=== PATIENT | female | born 1980 | race Caucasian/White ===

== ENCOUNTER → 2021-01-13 10:58 | Outpatient (BNVA) | payer OTHER, SELFPAY | PROVIDERS: PCP Nurse Practitioner Family; Visit Provider Nurse Practitioner Family ==

== ENCOUNTER 2021-02-24 06:26 | Outpatient (REF) | payer OTHER, SELFPAY ==
--- NOTE | ~2021-02-24 | FL_ITS ---
EXAMINATION: Intraoperative fluoroscopy CLINICAL INFORMATION: Spondylosis with radiculopathy COMPARISON: None. TECHNIQUE: Intraoperative fluoroscopy was provided for use by Delmy Ivory NP. A total of 6 images were saved to PACS. A radiologist was not present during imaging. Today's dictation is only for administrative purposes to document intraoperative fluoroscopic usage. TOTAL FLUOROSCOPIC TIME: 0.8 minutes FL/FL guidance in treatment room FINDINGS~\^^ Intraoperative fluoroscopy provided for use by Delmy Ivory NP. Please see operative note for detailed findings.
== END 2021-02-24 06:27 | disposition home or self-care (01) ==
LOC: HO.RADIR 06:26
PROVIDERS: Visit Provider Anesthesiology
DX: M47.27 Other spondylosis with radiculopathy, lumbosacral region (principal); Z79.899 Other long term (current) drug therapy
CPT/HCPCS: Q9967

== ENCOUNTER → 2021-03-03 09:56 | Outpatient (BNVA) | payer OTHER, SELFPAY | PROVIDERS: PCP Nurse Practitioner Family; Visit Provider Nurse Practitioner Family ==

== ENCOUNTER 2021-04-29 06:04 | Outpatient (REF) | payer OTHER, SELFPAY ==
--- NOTE | ~2021-04-29 | FL_ITS ---
EXAMINATION: XR FLUOROSCOPY WITH IMAGES CLINICAL INFORMATION: M51.37 - Other intervertebral disc degeneration, lumbosacral COMPARISON: MRI lumbar spine 11/27/2019 TECHNIQUE: Fluoroscopy performed by Delmy Ivory NP. Fluoroscopy time: 0.2 minutes DAP: 2.28 Gycm2 Images: 2 FINDINGS: There are spinal needles overlying the bilateral outer L3, L4, and L5 neural foramen. There is contrast seen in the respective nerve sheaths. Some early transforaminal epidural extension is suggested. No visible vascular communication. FL/FL guidance in treatment room IMPRESSION: Fluoroscopy for pain management procedures.
== END 2021-04-29 06:05 | disposition home or self-care (01) ==
LOC: HO.RADIR 06:04
PROVIDERS: Visit Provider Internal Medicine
DX: M51.37 Other intervertebral disc degeneration, lumbosacral region (principal); M47.27 Other spondylosis with radiculopathy, lumbosacral region
CPT/HCPCS: 64495; J3300; Q9967

== ENCOUNTER → 2021-06-02 09:39 | Outpatient (BNVA) | payer OTHER, SELFPAY | PROVIDERS: PCP Nurse Practitioner Family; Visit Provider Nurse Practitioner Family ==

== ENCOUNTER → 2021-06-25 13:59 | Outpatient (BNVA) | payer OTHER, SELFPAY | PROVIDERS: PCP Nurse Practitioner Family; Referring Provider Nurse Practitioner Family; Visit Provider Surgery ==

== ENCOUNTER 2021-07-08 06:31 | Outpatient (REF) | payer OTHER, SELFPAY ==
--- NOTE | ~2021-07-08 | FL_ITS ---
EXAMINATION: XR FLUOROSCOPY WITH IMAGES CLINICAL INFORMATION: Sacrococcygeal disorder COMPARISON: Previous exam January and March 2021 TECHNIQUE: Fluoroscopy performed by Delmy Ivory NP. Fluoroscopy time: 0.4 minutes DAP: 3.5 Gycm2 Images: 7 FINDINGS: Images demonstrate needle placement and contrast injection over the bilateral lateral L5 vertebral body and sacrum. FL/FL guidance in treatment room IMPRESSION: Fluoroscopy guidance for pain management procedure.
== END 2021-07-08 06:32 | disposition home or self-care (01) ==
LOC: HO.RADIR 06:31
PROVIDERS: Visit Provider Internal Medicine
DX: M51.36 Other intervertebral disc degeneration, lumbar region (principal); M53.3 Sacrococcygeal disorders, not elsewhere classified; M47.27 Other spondylosis with radiculopathy, lumbosacral region
CPT/HCPCS: Q9967

== ENCOUNTER → 2021-07-13 09:30 | Outpatient (BNVA) | payer OTHER, SELFPAY | PROVIDERS: PCP Nurse Practitioner Family; Visit Provider Internal Medicine ==

== ENCOUNTER 2021-07-27 06:02 | Day surgery (SDC) | payer OTHER, SELFPAY ==
[2021-07-21 16:11] VITALS: BMI 28.9
--- NOTE | 2021-07-24 11:52 | HO.ANESPROP2 ---
Documented by User: Gisell Flowers NP 07/24/21 11:53 HPI - Anesthesia Eval Consult details Narrative: 41yo F for Hernia Repair Umbilical PMFSH Active Problems Active Problems: All Active Problems (Updated 07/13/21 @ 12:24 by Memo Michael MD) Lumbar pars defect (Acute) Cervical disc disease (Acute) Nerve root compression (Acute) DDD (degenerative disc disease), lumbar (Acute) Sacroiliac joint pain (Acute) HTN (hypertension) (Acute) Umbilical hernia (Acute) DDD (degenerative disc disease) (Acute) Spondylosis of lumbosacral spine with radiculopathy (Acute) Tachycardia (Acute) Physical exam (Acute) Family history of uterine cancer (Acute) Family history of ovarian cancer (Acute) Family hx-breast malignancy (Acute) Lower back pain (Acute) Past Medical History Medical History Cervical disc disease DDD (degenerative disc disease), lumbar Family history of ovarian cancer Family history of uterine cancer Gestational diabetes Horseshoe kidney Lumbar pars defect Nerve root compression Family History Family History Father Kidney stones Mother DDD (degenerative disc disease) Maternal Grandmother Ovarian cancer Paternal Grandmother Breast cancer Leukemia Lung cancer Surgical History Surgical History No pertinent past surgical history Social History Social History Alcohol intake: current Alcohol intake frequency: holidays/special occasions only Patient Tobacco Use Status: Never used Tobacco Use of substances other than those prescribed or required for medical reasons: Yes Are you DNR?: No Advance Directives: No Advance Directives Information Provided: Yes Meds Allergies Allergy/AdvReac Type Severity Reaction Status Date / Time No Known Allergies Allergy Verified 07/27/21 06:32 Home Medications Medication Instructions Recorded Confirmed Last Taken Type blood sugar diagnostic #10 ea 08/21/20 07/23/21 Unknown History blood-glucose meter #1 ea 08/21/20 07/23/21 Unknown History diphenhydramine HCl 25 mg capsule 25 mg PO QID PRN 12/25/20 07/23/21 Unknown History (Benadryl) melatonin 5 mg capsule mg PO .1-2 cap cap 12/25/20 07/23/21 Unknown History ibuprofen 800 mg tablet 800 mg PO TID 01/13/21 07/23/21 07/25/21 10:00 History naproxen sodium 220 mg capsule 220 mg PO Q8H 06/02/21 07/23/21 Unknown History (Aleve) Exam Exam Date and Time: July 24, 2021 1152 Height,Weight and Vital Signs: Height 5 ft 5 in Weight 78.925 kg Assessment and Plan Assessment Anesthesia Assessment: Chart Reviewed Documented by User: Boy Herrmann MD 07/27/21 07:25 [facility] Past Medical History Medical History Cervical disc disease DDD (degenerative disc disease), lumbar Family history of ovarian cancer Family history of uterine cancer Gestational diabetes Horseshoe kidney Lumbar pars defect Nerve root compression Family History Family History Father Kidney stones Mother DDD (degenerative disc disease) Maternal Grandmother Ovarian cancer Paternal Grandmother Breast cancer Leukemia Lung cancer Family history of problems with anesthesia: No Surgical History Surgical History No pertinent past surgical history History of Problems with Anesthesia: No Social History Social History Alcohol intake: current Alcohol intake frequency: holidays/special occasions only Patient Tobacco Use Status: Never used Tobacco Use of substances other than those prescribed or required for medical reasons: Yes Are you DNR?: No Advance Directives: No Advance Directives Information Provided: Yes Meds Allergies Allergy/AdvReac Type Severity Reaction Status Date / Time No Known Allergies Allergy Verified 07/27/21 06:32 Home Medications Medication Instructions Recorded Confirmed Last Taken Type blood sugar diagnostic #10 ea 08/21/20 07/23/21 Unknown History blood-glucose meter #1 ea 08/21/20 07/23/21 Unknown History diphenhydramine HCl 25 mg capsule 25 mg PO QID PRN 12/25/20 07/23/21 Unknown History (Benadryl) melatonin 5 mg capsule mg PO .1-2 cap cap 12/25/20 07/23/21 Unknown History ibuprofen 800 mg tablet 800 mg PO TID 01/13/21 07/23/21 07/25/21 10:00 History naproxen sodium 220 mg capsule 220 mg PO Q8H 06/02/21 07/23/21 Unknown History (Aleve) Exam Airway Mallampati Class: I TM Dist: >3cm Neck ROM: Full Loose/Missing/Broken Teeth: No Heart: ok Lungs: ok Assessment and Plan Final Anesthetic Review Family History of Problems with Anesthesia: No History of Problems with Anesthesia: No ASA Class: II Final Preanesthetic Review: No Changes in Pt Med Stat, Meds/Allgs Chart Reviewed, Consent Obtained/Reviewed and Anes Risks/Benef Reviewed Patient Risk: Low Procedure Risk: Low Anesthetic Plan Anesthetic Plan: GA and Agree w/ Assess. and Plan Disposition: Standard PACU
[2021-07-27] VITALS (7 sets, daily range): BP systolic 116–139; BP diastolic 68–89; PULSE 48–73; RESP 16–18; TEMP 36.1–36.5; O2SAT 95–98
[2021-07-27 06:32] LABS: UPreg QC Valid YES; Urine Pregnancy NEGATIVE (NEGATIVE)
[2021-07-27] MEDS: Lactated Ringers 1,000 ML 100 ML IVCONT (06:44)
--- NOTE | 2021-07-27 07:22 | MHC.SHP ---
Pre-Procedural Eval Section A Date of Service: 07/27/21 The patient is an INPATIENT: No Changes since office visit: Yes Patient answered all questions; No Cold of Flu in the past 2 weeks, No New Medical Problems and No Changes in Medication The History & Physical has been completed within 30 days and I have reviewed it.: Yes Section B Chief Complaint: Umbilical Hernia Allergies: Allergies Allergy/AdvReac Type Severity Reaction Status Date / Time No Known Allergies Allergy Verified 07/27/21 06:32 Plan Diagnosis/Plan: Unchanged I have reviewed the history and physical and performed a pertinent physical examination on my patient. No changes have occurred unless specified.
--- NOTE | 2021-07-27 08:30 | P.OP_ITS ---
Operative Note Operative Note Date of Service: 07/27/21 Narrative: Preoperative diagnosis: Umbilical hernia Postoperative diagnosis: Same Procedure: Repair of umbilical hernia with mesh Surgeon: David Kuhn MD [employer] Professor: No physician Anesthesia: General LMA Indications for procedure: 41-year-old female patient presenting with an umbilical hernia which is increasing in size and causing discomfort. She is requesting repair of this umbilical hernia with mesh. Operative findings: Umbilical hernia with a hernia defect measuring approximately 2 cm in diameter. This was repaired using a 4.6 cm round Ventralex. Specimen: None Estimated blood loss: 2 mL Complications: None Procedure details: Patient was brought to the OR and placed in a supine position. After administering general anesthesia the patient's abdomen was prepped with ChloraPrep and draped in a sterile fashion. A surgical time-out was called the consent confirmed. Patient received preoperative antibiotics and Venodyne boots were in place. Local anesthesia consisting of 0.5% Sensorcaine plain was infiltrated in a periumbilical location. A curvilinear incision was made above the umbilicus and carried down through subcutaneous tissue up to the hernia sac. The hernia sac was then dissected circumferentially down to the fascial defect. Fascial defect was further defined circumferentially and a preperitoneal space created. The hernia sac was then reduced into the abdominal cavity. No bowel or incarcerated contents were identified within the sac. A large preperitoneal space was created through both blunt dissection and electrocautery dissection. A 4.6 cm round Ventralex mesh was then obtained. The mesh was then deployed into the preperitoneal space and secured to the fascia using [id number] 1 Tycron sutures. The fascia was closed over the mesh again using the Tycron sutures. Additional local was infiltrated into the muscular tissue and subcutaneous tissue. Wounds were irrigated and suctioned dry. Dermis was then reapproximated using interrupted 3-0 Polysorb sutures. Skin was then closed using a running subcuticular 4-0 Polysorb suture. Steri-Strips 2 x 2 gauze and Tegaderm were then applied. The patient tolerated the procedure well. Sponge, instrument, needle counts reported as correct. The patient was transferred to PACU in stable condition.
[2021-07-27] MEDS: Ketorolac Tromethamine 15 MG/ML VIAL IVPUSH (08:40)
[2021-07-27] MEDS: fentaNYL citrate/PF 100 MCG/2 ML VIAL 50 MCG IVPUSH (08:45)
[2021-07-27] MEDS: Acetaminophen 325 MG TABLET 650 MG PO (09:01)
[2021-07-27] MEDS: oxyCODONE HCl Immed Release 5 MG TABLET PO (09:02)
== END 2021-07-27 10:20 | disposition home or self-care (01) ==
PROVIDERS: Nurse Practitioner; PCP Nurse Practitioner Family; Visit Provider Surgery
PROC: (CPT 49585; principal; 2021-07-27 07:30)
DX: K42.9 Umbilical hernia without obstruction or gangrene (principal); I10 Essential (primary) hypertension
CPT/HCPCS: 49585; 81025; C1781; J0690; J1885; J2250; J3010

== ENCOUNTER → 2021-08-04 10:16 | Outpatient (BNVA) | payer OTHER, SELFPAY | PROVIDERS: PCP Nurse Practitioner Family; Referring Provider Nurse Practitioner Family; Visit Provider Surgery ==

== ENCOUNTER → 2021-09-08 15:46 | Outpatient (BNVA) | payer OTHER, SELFPAY | PROVIDERS: PCP Nurse Practitioner Family; Referring Provider Nurse Practitioner Family; Visit Provider Surgery ==

== ENCOUNTER 2021-09-22 14:28 | Outpatient (REF) | payer OTHER, SELFPAY ==
--- NOTE | ~2021-09-22 | CT_ITS ---
EXAMINATION: CT ABDOMEN AND PELVIS WITH CONTRAST CLINICAL INFORMATION: Periumbilical pain COMPARISON: None TECHNIQUE: Multidetector volumetric images were obtained from the superior aspect of the liver through the pubic symphysis following administration 85 mL of Omnipaque 350 intravenous contrast. Sagittal and coronal reformatted images were obtained on the technologist's workstation. Oral contrast: Yes This CT examination was performed using dose optimization techniques as appropriate, variously including the following: *Automated exposure control *Adjustment of mA and/or kV according to patient size (this includes techniques or standardized protocols for targeted exams where dose is matched to indication/reason for exam; i.e. extremities or head) *Use of iterative reconstruction technique DLP: 487 mGy-cm FINDINGS: LUNG BASES: The visualized lung bases are unremarkable. LIVER, GALLBLADDER, AND BILIARY TREE: The liver is normal in size, shape, and attenuation. There is a small calcification in the central liver axial image 13 series 3. No focal hepatic lesion or biliary ductal dilatation is present. The gallbladder is unremarkable with no evidence of radiopaque gallstones, gallbladder wall thickening, or obvious pericholecystic inflammatory changes. PANCREAS: Unremarkable. SPLEEN: Unremarkable. ADRENAL GLANDS: Unremarkable. KIDNEYS AND URETERS: There is a horseshoe kidney. The kidneys are otherwise unremarkable. BLADDER: Unremarkable. GASTROINTESTINAL TRACT: The small and large bowel are unremarkable. The appendix is unremarkable. ABDOMINAL WALL: There is question of previous umbilical hernia repair. There is asymmetric soft tissue thickening in the right side of the umbilicus. No hernia or fluid collection is seen. LYMPH NODES: Normal. VASCULAR: Unremarkable. PELVIC VISCERA: Unremarkable. OSSEOUS STRUCTURES: There is degenerative disc disease at L4-L5 and L5-S1. CT/CT abdomen pelvis w con IMPRESSION: Question previous umbilical hernia repair. Asymmetric soft tissue thickening of the right side of the umbilicus. No hernia or fluid collection seen. Horseshoe kidney. Fleischner guidelines were followed.
[2021-09-22] MEDS: iohexoL 350 MG/ML 100 ML INFUS..BTL IV (15:04)
== END 2021-09-22 14:29 | disposition home or self-care (01) ==
LOC: HO.CT 14:28
PROVIDERS: Visit Provider Surgery
DX: R10.33 Periumbilical pain (principal); K43.9 Ventral hernia without obstruction or gangrene
CPT/HCPCS: 74177; Q9967

== ENCOUNTER 2021-11-11 06:13 | Outpatient (REF) | payer OTHER, SELFPAY | END 2021-11-11 06:14 | disposition home or self-care (01) | LOC: HO.RADIR 06:13 | PROVIDERS: Visit Provider Internal Medicine | DX: Z13.89 Encounter for screening for other disorder (principal) ==

== ENCOUNTER 2021-11-11 08:13 | Outpatient (REF) | payer OTHER, SELFPAY ==
[2021-11-11 08:43] LABS: Binax Internal Control QC Valid; Binax Now Covid-19 Ag Positive (Negative)
== END 2021-11-11 08:14 | disposition home or self-care (01) ==
LOC: HO.LAB 08:13
PROVIDERS: Visit Provider Internal Medicine
DX: Z20.822 Contact with and (suspected) exposure to COVID-19 (principal)
CPT/HCPCS: C9803

== ENCOUNTER 2022-01-06 06:07 | Outpatient (REF) | payer OTHER, SELFPAY ==
--- NOTE | ~2022-01-06 | FL_ITS ---
EXAMINATION: XR FLUOROSCOPY WITH IMAGES CLINICAL INFORMATION: M51.36 - Other intervertebral disc degeneration, lumbar COMPARISON: MR lumbar spine 11/27/2019 TECHNIQUE: Fluoroscopy performed by Dr. Memo Michael. Fluoroscopy time: 0.1 minutes DAP: 1.13 Gycm2 Images: 2 FINDINGS: There is interlaminar spinal needle at the lumbosacral junction. Contrast is seen in the epidural space. There is no vascular communication. There are degenerative disc changes L5-S1. FL/FL guidance in treatment room IMPRESSION: Fluoroscopy for pain management procedure.
== END 2022-01-06 06:08 | disposition home or self-care (01) ==
LOC: HO.RADIR 06:07
PROVIDERS: Visit Provider Internal Medicine
DX: M51.36 Other intervertebral disc degeneration, lumbar region (principal); M54.16 Radiculopathy, lumbar region; M43.06 Spondylolysis, lumbar region
CPT/HCPCS: 62323; J1040; Q9967

== ENCOUNTER → 2022-02-03 15:10 | Outpatient (BNVA) | payer OTHER, SELFPAY | PROVIDERS: PCP Nurse Practitioner Family; Visit Provider Nurse Practitioner Family | DX: Z13.89 Encounter for screening for other disorder (principal) ==

== ENCOUNTER 2022-02-17 14:30 | Outpatient (REF) | payer OTHER, SELFPAY ==
--- NOTE | ~2022-02-17 | MR_ITS ---
EXAMINATION: MR LUMBAR SPINE WITHOUT CONTRAST CLINICAL INFORMATION: Lumbar region radiculopathy. Left leg pain. Low back pain. COMPARISON: MRI dated 11/27/2019. TECHNIQUE: MRI of the lumbar spine was obtained using routine sequences without contrast. Limited study with motion artifacts. FINDINGS: VERTEBRAL BODIES AND PARASPINAL STRUCTURES: Chronic fatty marrow endplate changes and mild retrosubluxation with [id number] disc space narrowing again evident at the L4-L5 level. There is a grade 1 anterolisthesis with moderate disc space narrowing at the L5-S1 level where there are chronic bilateral L5 pars defects, also evident on the prior exam. Mild leftward lumbar spinal curvature evident. The paraspinal soft tissues are unremarkable. Incidental horseshoe kidney partially visualized. The imaged bony pelvis is unremarkable. CONUS MEDULLARIS AND CAUDA EQUINA: Normal, terminating at the level of L1. No lower cord signal abnormality is seen. The cauda equina nerve roots are normal. SPINAL LEVELS: L1-L2, L2-L3, and L3-L4: No significant disc pathology, central canal stenosis, or foraminal narrowing. L4-L5: Loss of disc height with chronic endplate changes and a shallow left paracentral disc protrusion with an underlying annular tear. Small extruded component of disc also again visible with mild impression upon the left L5 nerve root in the lateral recess. No central canal stenosis or significant foraminal encroachment. L5-S1: Anterior subluxation and disc degeneration as on prior imaging. Unroofed disc bulge again noted. Worsened central to left extraforaminal broad-based disc protrusion with mild superior migration resulting in ventral thecal sac deformity and posterior deflection of the left S1 nerve root. Additional compression of the exiting left L5 nerve root with significant left foraminal encroachment, worsened. Bulging disc mildly distorts the exiting right L5 nerve root with milder right foraminal encroachment. MR/MR lumbar spine wo con IMPRESSION: Worsened broad-based central to left extraforaminal disc protrusion at the L5-S1 level with distortion of the ventral thecal sac and compression of the left L5 and S1 nerve roots. Stable mild anterolisthesis with chronic L5 pars defects. Moderate chronic degenerative disc disease at the L4-L5 level with a shallow left paracentral disc protrusion and small extruded component of disc again visible mildly impressing upon the left L5 nerve root in the lateral recess.
== END 2022-02-17 14:31 | disposition home or self-care (01) ==
LOC: HO.MRI 14:30
PROVIDERS: Visit Provider Nurse Practitioner Family
DX: M54.16 Radiculopathy, lumbar region (principal); M51.36 Other intervertebral disc degeneration, lumbar region; M43.06 Spondylolysis, lumbar region
CPT/HCPCS: 72148

== ENCOUNTER 2022-03-19 05:57 | Outpatient (REF) | payer OTHER, SELFPAY | END 2022-03-19 05:58 | disposition home or self-care (01) | LOC: HO.RADIR 05:57 | PROVIDERS: Visit Provider Internal Medicine | DX: Z13.89 Encounter for screening for other disorder (principal) ==

== ENCOUNTER 2023-03-02 10:35 | Outpatient (REF) | payer OTHER, SELFPAY ==
[2023-03-02 11:09] LABS: MANUAL DIFF FLAG NO
[2023-03-02 11:28] LABS: Basophils Percent Auto 0.5 % (0-2); Eosinophils Absolute Auto 0.2 X10*3/uL (0.0-0.4); Eosinophils Percent Auto 2.9 % (0-4); Hemoglobin 11.8 g/dl (12.0-16.0); Imm Gran Abs Auto 0.01 X10*3/uL (0.00-0.03); Imm Gran Pct Auto 0.2 % (0.0-0.4); Lymphocytes Percent Auto 32.4 % (20-40); Mean Corpuscular HGB Conc 31.9 g/dl (31.0-35.0); Mean Corpuscular Hemoglobin 24.9 pg (27.0-33.0); Mean Corpuscular Volume 78.2 fL (80.0-98.0); Mean Platelet Volume 11.2 fL (9.4-12.3); Monocytes Absolute Auto 0.5 X10*3/uL (0.1-1.2); Monocytes Percent Auto 7.5 % (2-11); Neutrophils Absolute Auto 3.5 x10*3/uL (2.0-8.3); Neutrophils Percent Auto 56.5 % (45-73); Platelet Count 285 X10*3/uL (160-400); Red Blood Count 4.73 X10*6/uL (4.20-5.50); Red Cell Distribution Width 15.9 % (11.0-16.0); White Blood Count 6.2 X10*3/uL (4.8-10.8)
[2023-03-02 12:21] LABS: Alanine Aminotransferase 10 U/L (0-31); Albumin Level 4.6 g/dL (3.5-5.0); Alkaline Phosphatase 75 U/L (39-117); Anion Gap 11 (12-20); Aspartate Amino Transferase 15 U/L (5-31); Bilirubin Total 0.6 mg/dL (0.0-1.0); Blood Urea Nitrogen 11 mg/dL (9-16); Calcium 9.7 mg/dL (8.4-10.2); Carbon Dioxide 23 mmol/L (22-29); Chloride 108 mmol/L (96-108); Cholesterol 305 mg/dL; Estimated Glomerular Filt Rate > 60; Glucose Fasting 109 mg/dL (60-99); HDL Cholesterol 64 mg/dL; LDL Cholesterol Calculated 218 mg/dl; Sodium 138 mmol/L (135-145); TSH reflex Free T4 0.63 uIU/mL (0.32-4.0); Total Protein 7.4 g/dL (6.5-8.0); Triglycerides 117 mg/dL
[2023-03-02 14:25] LABS: Appearance Urine Clear; Color Urine Yellow; Glucose Urine UA Negative (Negative); Leukocyte Esterase Urine Negative (Negative); Nitrite Urine Negative (Negative); PH 5.5 (5.0-9.0); Specific Gravity - Urine 1.025 (1.005-1.025); Urine Blood Negative (Negative); Urine Ketones 15 mg/dL (Negative); Urine Protein Negative (Neg-Trace)
== END 2023-03-02 10:36 | disposition home or self-care (01) ==
LOC: HO.HMGCLDS 10:35
PROVIDERS: PCP Nurse Practitioner Family; Visit Provider Nurse Practitioner Family
DX: M47.27 Other spondylosis with radiculopathy, lumbosacral region (principal); D64.9 Anemia, unspecified; E78.5 Hyperlipidemia, unspecified
CPT/HCPCS: 36415; 80053; 80061; 81003; 84443; 85025

== ENCOUNTER 2023-08-31 09:47 | Outpatient (AMB) | payer OTHER, SELFPAY ==
--- NOTE | 2023-08-31 09:50 | A.OFFPC_ITS ---
Vital Signs 08/31/23 09:52 Height 5 ft 5 in Weight 158 lb 2 oz BMI 26.3 BP 128/90 H Blood Pressure Location Rt brachial Position Sitting Pulse 68 Pulse Source Pulse Oximeter Pulse Oximetry (%) 100 Oxygen Delivery Method Room Air Intake Visit Reasons: 6m Follow up HTN Allergies rosuvastatin Adverse Reaction (Intermediate, Uncoded 08/31/23 09:54) Gastrointestinal Upset Medication List - Last Reconciled 08/31/23 by NAHUN Polk acetaminophen ER (Tylenol Arthritis Pain) 1,300 mg PO Q12H amlodipine 2.5 mg PO DAILY 90 days cyclobenzaprine 10 mg PO BID PRN diphenhydramine HCl (Benadryl) 25 mg PO QID PRN ibuprofen 800 mg PO TID melatonin mg PO .1-2 cap naproxen sodium (Aleve) 220 mg PO Q8H propranolol ER 120 mg PO DAILY 30 days Tobacco use date assessed: 03/02/23 Dental Screening Dental Screen Date: 08/31/23 Did you have a dental visit in the last 12 months?: Yes Did you have a dental problem in the last 6 months where you did not have access to dental care?: No Was dental information given to patient?: Patient has dentist HPI 6m Follow up HTN HPI Details I last saw this patient in February for hypertension. I increased her propanolol from 80 mg to 120 mg daily. HR is down. Pt reports taking her BP at home, pulse remains in the 60s, though BP is 140/90s. Will add amlodipine. #2 dyslipidemia: started stain, pt had side effects (severe nausea), does not want to try another statin. will send [facility]. denies any CP, SOB, dizziness, or REIS. [facility] Medical History Lumbar pars defect Family history of uterine cancer Family history of ovarian cancer Horseshoe kidney Gestational diabetes Nerve root compression Cervical disc disease DDD (degenerative disc disease), lumbar Surgical History No pertinent past surgical history Family History Father Kidney stones Mother DDD (degenerative disc disease) Substance use disorder Maternal Grandmother Ovarian cancer Paternal Grandmother Breast cancer Leukemia Lung cancer Social History Housing: House Alcohol intake: current Alcohol intake frequency: holidays/special occasions only Patient Tobacco Use Status: Never used Tobacco e-Cigarette/Vaping Use: Never Used Second Hand Smoke Exposure: No Current occupational status: disabled Cognitive needs: No Hearing needs: No Vision needs: No Questionnaire Thrive Questionnaire Date Thrive assessed: 01/28/22 KRISTINA-7 AMB Questionnaire KRISTINA-7 Date KRISTINA - 7 assessed: 01/28/22 Source: Developed by Drs. Duc De La Cruz, Leigh Triana, Moy Roberts and colleagues, with an educational javier from [employer]. Physical exam (Primary Care) Vital Signs: Last Vital Signs Pulse 68 08/31/23 09:52 BP 128/90 H 08/31/23 09:52 Pulse Ox 100 08/31/23 09:52 Oxygen Delivery Method Room Air 08/31/23 09:52 BMI result Body Mass Index 26.3 Tobacco/Smoking Status: Tobacco use Status Tobacco use date assessed 03/02/23 08/31/23 09:52 Patient Tobacco Use Status Never used Tobacco 08/31/23 09:52 e-Cigarette/Vaping Use Never Used 08/31/23 09:52 Thrive Assessment: Date of Thrive Assessment Date Thrive assessed 01/28/22 08/31/23 09:52 Const General: cooperative and healthy appearing Resp Effort & Inspection: normal respiratory effort Auscultation: clear to auscultation bilaterally Cardio Rate: regular rate Rhythm: regular rhythm Heart sounds: S1 normal heart sound present and S2 normal heart sound present Psych Appearance: grossly normal Mental Status: mental status grossly normal Speech and movement: Normal speech and movement present Affect: normal affect Attitude: cooperative Thought process: Normal thought process present Thought content: Normal thought content present Insight: Good insight present (Psych) Judgement: Good judgement present (Psych) Assessment and Plan Assessment & Plan (1) Dyslipidemia: Code(s): E78.5 - Hyperlipidemia, unspecified Plan: added generic zetia, will repeat labs (2) HTN (hypertension): Code(s): I10 - Essential (primary) hypertension Plan: cont propranolol, added amlodipine (low dose) Orders: Orders Lipid Panel Today E78.5 - Hyperlipidemia, unspecified, I10 - Essential (primary) hypertension UA CC w/rflx Micro + Cult Today E78.5 - Hyperlipidemia, unspecified, I10 - Essential (primary) hypertension Complete Blood Count Auto Diff Today E78.5 - Hyperlipidemia, unspecified, I10 - Essential (primary) hypertension Comprehensive [place]. Panel Fast Today E78.5 - Hyperlipidemia, unspecified, I10 - Essential (primary) hypertension TSH reflex Free T4 Today E78.5 - Hyperlipidemia, unspecified, I10 - Essential (primary) hypertension Medications: New ezetimibe for cholesterol. 10 mg PO DAILY 90 days 90 tabs 0RF amlodipine 2.5 mg PO DAILY 90 days 90 tabs 0RF Coding Level of Care Code Est Pt Level 3 (85781) Diagnoses Dyslipidemia E78.5 HTN (hypertension) I10
[2023-08-31 09:52] VITALS: BP 128/90; PULSE 68; O2SAT 100; BMI 26.3
== END 2023-08-31 10:49 | disposition home or self-care (01) ==
PROVIDERS: Visit Provider Nurse Practitioner Family
DX: E78.5 Hyperlipidemia, unspecified (principal); I10 Essential (primary) hypertension
CPT/HCPCS: 99213

== ENCOUNTER 2024-03-12 10:00 | Outpatient (REF) | payer OTHER, SELFPAY ==
[2024-03-12 13:27] LABS: MANUAL DIFF FLAG NO
[2024-03-12 13:55] LABS: Basophils Percent Auto 0.7 % (0-2); Eosinophils Absolute Auto 0.2 X10*3/uL (0.0-0.4); Eosinophils Percent Auto 2.8 % (0-4); Hematocrit 34.1 % (37.0-47.0); Hemoglobin 10.8 g/dl (12.0-16.0); Imm Gran Abs Auto 0.01 X10*3/uL (0.00-0.03); Imm Gran Pct Auto 0.2 % (0.0-0.4); Lymphocytes Percent Auto 33.2 % (20-40); Mean Corpuscular HGB Conc 31.7 g/dl (31.0-35.0); Mean Corpuscular Hemoglobin 25.6 pg (27.0-33.0); Mean Corpuscular Volume 80.8 fL (80.0-98.0); Mean Platelet Volume 11.1 fL (9.4-12.3); Monocytes Absolute Auto 0.4 X10*3/uL (0.1-1.2); Neutrophils Absolute Auto 3.4 x10*3/uL (2.0-8.3); Neutrophils Percent Auto 56.1 % (45-73); Platelet Count 303 X10*3/uL (160-400); Red Blood Count 4.22 X10*6/uL (4.20-5.50); White Blood Count 6.1 X10*3/uL (4.8-10.8)
[2024-03-12 14:09] LABS: Appearance Urine Clear; Color Urine Yellow; Glucose Urine UA Negative (Negative); Leukocyte Esterase Urine Negative (Negative); Nitrite Urine Negative (Negative); Urine Blood Negative (Negative); Urine Ketones Negative (Negative); Urine Protein Negative (Neg-Trace)
[2024-03-12 14:27] LABS: Alanine Aminotransferase 9 U/L (0-31); Albumin Level 4.3 g/dL (3.5-5.0); Alkaline Phosphatase 73 U/L (39-117); Anion Gap 13 (12-20); Aspartate Amino Transferase 14 U/L (5-31); Bilirubin Total 0.3 mg/dL (0.0-1.0); Blood Urea Nitrogen 12 mg/dL (9-16); Calcium 9.2 mg/dL (8.4-10.2); Carbon Dioxide 20 mmol/L (22-29); Chloride 108 mmol/L (96-108); Cholesterol 280 mg/dL (<200); Estimated Glomerular Filt Rate > 60; Glucose Fasting 81 mg/dL (60-99); HDL Cholesterol 73 mg/dL (>40); LDL Cholesterol Calculated 189 mg/dL (<100); Potassium 4.1 mmol/L (3.3-5.1); Sodium 137 mmol/L (135-145); Total Protein 7.7 g/dL (6.5-8.0); Triglycerides 94 mg/dL (<150)
== END 2024-03-12 10:01 | disposition home or self-care (01) ==
LOC: HO.HMGCLDS 10:00
PROVIDERS: PCP Nurse Practitioner Family; Visit Provider Nurse Practitioner Family
DX: E78.5 Hyperlipidemia, unspecified (principal); I10 Essential (primary) hypertension
CPT/HCPCS: 36415; 80053; 80061; 81003; 84443; 85025

== ENCOUNTER 2024-03-12 10:28 | Outpatient (AMB) | payer OTHER, SELFPAY ==
--- NOTE | 2024-03-12 10:41 | A.OFFPC_ITS ---
Vital Signs 03/12/24 10:44 Height 5 ft 5 in Weight 158 lb 6 oz BMI 26.4 BP 120/76 Blood Pressure Location Lt brachial Position Sitting Pulse 78 Pulse Source Pulse Oximeter Pulse Oximetry (%) 100 Oxygen Delivery Method Room Air Intake Visit Reasons: Physical Exam Intake Note: Patient here for physical exam. Pap: 2020 Allergies rosuvastatin Adverse Reaction (Intermediate, Uncoded 03/12/24 11:06) Gastrointestinal Upset Medication List - Last Reconciled 03/12/24 by NAHUN Polk acetaminophen ER (Tylenol Arthritis Pain) 1,300 mg PO Q12H cyclobenzaprine 10 mg PO BID PRN ibuprofen 800 mg PO TID melatonin mg PO .1-2 cap naproxen sodium (Aleve) 220 mg PO Q8H propranolol ER 120 mg PO DAILY Tobacco use date assessed: 03/12/24 Dental Screening Dental Screen Date: 03/12/24 Did you have a dental visit in the last 12 months?: Yes Did you have a dental problem in the last 6 months where you did not have access to dental care?: No Was dental information given to patient?: Patient has dentist HPI Physical Exam HPI Details Pt is here for a PE. Labs have already been ordered. Due for mammo, will order. Pt does not have a insurance executive, will refer. Pt has a significant back history. FORMERLY [facility] Medical History Lumbar pars defect Family history of uterine cancer Family history of ovarian cancer Horseshoe kidney Gestational diabetes Nerve root compression Cervical disc disease DDD (degenerative disc disease), lumbar Surgical History No pertinent past surgical history Family History Father Kidney stones Mother DDD (degenerative disc disease) Substance use disorder Maternal Grandmother Ovarian cancer Paternal Grandmother Breast cancer Leukemia Lung cancer Social History Housing: House Alcohol intake: current Alcohol intake frequency: holidays/special occasions only Patient Tobacco Use Status: Never used Tobacco e-Cigarette/Vaping Use: Never Used Second Hand Smoke Exposure: No Current occupational status: disabled Cognitive needs: No Hearing needs: No Vision needs: No Questionnaire PHQ-9 Over the last 2 weeks, how often have you been bothered by any of the following problems? 1. Little interest or pleasure in doing things: not at all 2. Feeling down, depressed, or hopeless: not at all 3. Trouble falling or staying asleep, or sleeping too much: more than half the days 4. Feeling tired or having little energy: several days 5. Poor appetite or overeating: not at all 6. Feeling bad about yourself - or that you are a failure or have let yourself or your family down: not at all 7. Trouble concentrating on things, such as reading the newspaper or watching television: not at all 8. Moving or speaking so slowly that other people could have noticed. Or the opposite - being so fidgety or restless that you have been moving around a lot more than usual: not at all 9. Thoughts that you would be better off or of hurting yourself in some way: not at all Total score: 3 Depression Screening Interpretation: Negative Depression Screening Done: Yes 05336 - PHQ-9 Billing: Yes Source: Developed by Drs. Duc De La Cruz, Leigh Triana, Moy oRberts and colleagues, with an educational javier from [employer]. Thrive Questionnaire Date Thrive assessed: 01/28/22 I am a: Patient What is your living situation today?: I have a steady place to live Within the past 12 months, did the food you bought not last and you didn't have the money to get more?: Never true Within the past 12 months, did you worry whether your food would run out before you got money to buy more?: Never true Please select the resources that you would like help with: None Currently or been in a relationship where the following occur: no concerns reported THRIVE Score: 0 AUDIT C Alcohol Use Questionnaire (AUDIT-C) 1. How often do you have a drink containing alcohol?: Never 3. How often do you have six or more drinks on one occasion?: Never Total Score: 0 Score Reviewed/Action Taken: No KRISTINA-7 AMB Questionnaire KRISTINA-7 Date KRISTINA - 7 assessed: 03/12/24 Feeling nervous, anxious, or on edge: 0 = Not at all Not being able to stop or control worryin = Not at all Worrying too much about different things: 1 = Several days Trouble relaxin = Several days Being so restless that it is hard to sit still: 1 = Several days Becoming easily annoyed or irritable: 0 = Not at all Feeling afraid as if something awful might happen: 0 = Not at all Total KRISTINA-7 score (0-4 normal; 5-9 mild; 10-14 moderate; 15-21 severe): 3 Source: Developed by Drs. Duc De La Cruz, Leigh Triana, Moy Roberts and colleagues, with an educational javier from [employer]. KRISTINA-7 Assessment Billing KRISTINA-7 Assessment Tool: KRISTINA-7 Assessment 07824 Review of Systems Const Denies chills and Denies fever(s) Eyes Denies blurry vision ENT Denies vertigo, Denies dizziness and Denies sore throat Card Denies chest pain at rest, Denies chest pain with activity, Denies diaphoresis, Denies dyspnea and Denies dyspnea on exertion Resp Denies cough, Denies dyspnea, Denies dyspnea on exertion and Denies wheezing GI Denies abdominal pain, Denies melena, Denies hematochezia, Denies constipation, Denies diarrhea and Denies loose stools Denies hematuria Musc Denies numbness and Denies tingling Skin/Breast Denies lesions Neuro Denies vertigo, Denies dizziness, Denies numbness and Denies tingling Psych Denies anxiety, Denies depression, Denies homicidal ideation, Denies suicidal ideation and Denies other (substance abuse) Aller/Immun Denies wheezing Physical exam (Primary Care) Vital Signs: Last Vital Signs Pulse 78 03/12/24 10:44 BP 120/76 03/12/24 10:44 Pulse Ox 100 03/12/24 10:44 Oxygen Delivery Method Room Air 03/12/24 10:44 BMI result Body Mass Index 26.4 Tobacco/Smoking Status: Tobacco use Status Tobacco use date assessed 03/12/24 03/12/24 10:47 Patient Tobacco Use Status Never used Tobacco 03/12/24 10:41 e-Cigarette/Vaping Use Never Used 03/12/24 10:41 PHQ-9: PHQ-9 Score PHQ-9: Total score 3 03/12/24 10:53 Depression Screening Interpretation: Negative Thrive Assessment: Date of Thrive Assessment Date Thrive assessed 01/28/22 03/12/24 10:41 Currently or been in a relationship where the following occur: no concerns reported Const General: cooperative Nutritional Appearance: well nourished Orientation/consciousness: patient oriented x3 HENMT Head: Yes normal to inspection, Yes normocephalic and Yes atraumatic Ears: TM's normal bilaterally Eyes General: appearance normal, both eyes and all related structures Alignment and Position: alignment normal and position normal Neck Neck: Yes normal visual inspection and Yes no lymphadenopathy Thyroid: Thyroid normal Resp Effort & Inspection: normal respiratory effort Auscultation: clear to auscultation bilaterally Cardio Rate: regular rate Rhythm: regular rhythm Heart sounds: S1 normal heart sound present, S2 normal heart sound present and no murmurs GI Palpation (GI): Soft to palpation and nontender Auscultation: normal bowel sounds Skin Rashes: no rashes Neuro General: patient oriented x3, moves all extremities, no focal motor deficits and deep tendon reflexes 2+ bilaterally Romberg Test: Negative Psych Appearance: grossly normal Mental Status: mental status grossly normal Speech and movement: Normal speech and movement present Affect: normal affect Attitude: cooperative Thought process: Normal thought process present Thought content: Normal thought content present Insight: Good insight present (Psych) Judgement: Good judgement present (Psych) Assessment and Plan Assessment & Plan (1) Physical exam: Code(s): Z00.00 - Encounter for general adult medical examination without abnormal findings Plan: Labs ordered (2) Screening for cervical cancer: Code(s): Z12.4 - Encounter for screening for malignant neoplasm of cervix Plan The patient agreed to the use of a adjunct faculty for medical terminology for this encounter. Scribed for NAHUN Coleman by Maribel Miner adjunct faculty for medical terminology, on 03/12/2024 at 11:05 EST. Orders: Orders MM screening mammo BI Today Z12.31 - Encounter for screening mammogram for malignant neoplasm of breast Referrals [facility] Referral Z12.4 - Encounter for screening for malignant neoplasm of cervix Coding Level of Care Code Est Pt Prev Care 40-64y(73291) Diagnoses Physical exam Z00.00 Screening for cervical cancer Z12.4 Additional Codes KRISTINA-7 Assessment Billing - KRISTINA-7 Assessment Tool: KRISTINA-7 Assessment 43077 ([id number])
[2024-03-12 10:44] VITALS: BP 120/76; PULSE 78; O2SAT 100; BMI 26.4
== END 2024-03-12 11:19 | disposition home or self-care (01) ==
PROVIDERS: Visit Provider Nurse Practitioner Family
DX: Z00.00 Encounter for general adult medical examination without abnormal findings (principal); Z12.4 Encounter for screening for malignant neoplasm of cervix
CPT/HCPCS: 99396

== ENCOUNTER 2024-09-18 09:55 | Outpatient (AMB) | payer OTHER, SELFPAY ==
[2024-09-18 09:59] VITALS: BP 130/80; PULSE 74; O2SAT 100; BMI 26.3
--- NOTE | 2024-09-18 09:59 | A.OFFPC_ITS ---
Vital Signs 09/18/24 09:59 Height 5 ft 5 in Weight 158 lb BMI 26.3 BP 130/80 Blood Pressure Location Rt brachial Position Sitting Pulse 74 Pulse Source Pulse Oximeter Pulse Oximetry (%) 100 Intake Visit Reasons: 6M F/U Intake Note: pt is here for 6 month follow up Side Trimmer Required: No Accompanied by: Self / Same As Patient Allergies rosuvastatin Adverse Reaction (Intermediate, Uncoded 09/18/24 10:05) Gastrointestinal Upset Medication List - Last Reconciled 09/18/24 by NAHUN Polk acetaminophen ER (Tylenol Arthritis Pain) 1,300 mg PO Q12H cyclobenzaprine 10 mg PO BID PRN ibuprofen 800 mg PO TID melatonin mg PO .1-2 cap naproxen sodium (Aleve) 220 mg PO Q8H propranolol ER 120 mg PO DAILY Tobacco use date assessed: 03/12/24 Dental Screening Dental Screen Date: 03/12/24 HPI 8M F/U HPI Details htn: stable today, denies any REIS, dizziness, CP, SOB, or blurred vision. Pt would like to lower her propranolol from 120mg ER to 80mg ER. Will lower dose, and pt will cont to monitor. FORMERLY [facility] Medical History Lumbar pars defect Family history of uterine cancer Family history of ovarian cancer Horseshoe kidney Gestational diabetes Nerve root compression Cervical disc disease DDD (degenerative disc disease), lumbar Surgical History No pertinent past surgical history Family History Father Kidney stones Mother DDD (degenerative disc disease) Substance use disorder Maternal Grandmother Ovarian cancer Paternal Grandmother Breast cancer Leukemia Lung cancer Social History Housing: House Alcohol intake: current Alcohol intake frequency: holidays/special occasions only Patient Tobacco Use Status: Never used Tobacco e-Cigarette/Vaping Use: Never Used Second Hand Smoke Exposure: No Current occupational status: disabled Cognitive needs: No Hearing needs: No Vision needs: No Questionnaire PHQ-9 Over the last 2 weeks, how often have you been bothered by any of the following problems? 1. Little interest or pleasure in doing things: not at all 2. Feeling down, depressed, or hopeless: not at all 3. Trouble falling or staying asleep, or sleeping too much: not at all 4. Feeling tired or having little energy: not at all 5. Poor appetite or overeating: not at all 6. Feeling bad about yourself - or that you are a failure or have let yourself or your family down: not at all 7. Trouble concentrating on things, such as reading the newspaper or watching television: not at all 8. Moving or speaking so slowly that other people could have noticed. Or the opposite - being so fidgety or restless that you have been moving around a lot more than usual: not at all 9. Thoughts that you would be better off or of hurting yourself in some way: not at all Total score: 0 Depression Screening Interpretation: Negative Depression Screening Done: Yes 93539 - PHQ-9 Billing: Yes Source: Developed by Drs. Duc De La Cruz, Leihg Triana, Moy Roberts and colleagues, with an educational javier from [employer]. Thrive Questionnaire Date Thrive assessed: 09/18/24 I am a: Patient What is your living situation today?: I have a steady place to live Within the past 12 months, did the food you bought not last and you didn't have the money to get more?: I choose not to answer this question Within the past 12 months, did you worry whether your food would run out before you got money to buy more?: I choose not to answer this question Do you have trouble paying for medicines?: I choose not to answer this question Do you have trouble getting transportation to medical appointments?: I choose not to answer this question Do you have trouble paying your heating and electricity bill?: I choose not to answer this question Do you have trouble taking care of your child, family member or friend?: I choose not to answer this question Do you have trouble with day-to-day activities such as bathing, preparing meals, shopping, managing finances, etc.?: I choose not to answer this question Are you currently unemployed and looking for a job?: I choose not to answer this question Are you interested in more education?: I choose not to answer this question Please select the resources that you would like help with: None Currently or been in a relationship where the following occur: I choose not to answer THRIVE Score: 0 AUDIT C Alcohol Use Questionnaire (AUDIT-C) 1. How often do you have a drink containing alcohol?: Never 3. How often do you have six or more drinks on one occasion?: Never Total Score: 0 Score Reviewed/Action Taken: Yes KRISTINA-7 AMB Questionnaire KRISTINA-7 Date KRISTINA - 7 assessed: 09/18/24 Feeling nervous, anxious, or on edge: 0 = Not at all Not being able to stop or control worryin = Not at all Worrying too much about different things: 0 = Not at all Trouble relaxin = Not at all Being so restless that it is hard to sit still: 0 = Not at all Becoming easily annoyed or irritable: 0 = Not at all Feeling afraid as if something awful might happen: 0 = Not at all Total KRISTINA-7 score (0-4 normal; 5-9 mild; 10-14 moderate; 15-21 severe): 0 Source: Developed by Drs. Duc De La Cruz, Leigh Triana, Moy Roberts and colleagues, with an educational javier from [employer]. KRISTINA-7 Assessment Billing KRISTINA-7 Assessment Tool: KRISTINA-7 Assessment 58642 Physical exam (Primary Care) Vital Signs: Last Vital Signs Pulse 74 09/18/24 09:59 BP 130/80 09/18/24 09:59 Pulse Ox 100 09/18/24 09:59 BMI result Body Mass Index 26.3 Tobacco/Smoking Status: Tobacco use Status Tobacco use date assessed 03/12/24 09/18/24 10:00 Patient Tobacco Use Status Never used Tobacco 09/18/24 10:00 e-Cigarette/Vaping Use Never Used 09/18/24 10:00 PHQ-9: PHQ-9 Score PHQ-9: Total score 0 09/18/24 10:06 Depression Screening Interpretation: Negative Thrive Assessment: Date of Thrive Assessment Date Thrive assessed 09/18/24 09/18/24 10:06 Currently or been in a relationship where the following occur: I choose not to answer Const General: cooperative, healthy appearing, comfortable, no acute distress and well developed Resp Effort & Inspection: normal respiratory effort Auscultation: clear to auscultation bilaterally Cardio Rate: regular rate Rhythm: regular rhythm Heart sounds: S1 normal heart sound present, S2 normal heart sound present and no murmurs Psych Appearance: grossly normal Mental Status: mental status grossly normal Coding Level of Care Code Est Pt Level 3 (46413) Diagnoses HTN (hypertension) I10 Additional Codes KRISTINA-7 Assessment Billing - KRISTINA-7 Assessment Tool: KRISTINA-7 Assessment 96624 ([id number]) PHQ-9 - 58731 - PHQ-9 Billing: Yes ([id number]) Assessment & Plan Assessment & Plan (1) HTN (hypertension): Code(s): I10 - Essential (primary) hypertension Category: Medical Plan: decreasing propranolol from 120 to 80 (pt requested), stable BP, pt will cont to monitor. Plan lowering propranolol from 120 to 80mg. Orders: Orders TSH reflex Free T4 Today I10 - Essential (primary) hypertension Lipid Panel Today I10 - Essential (primary) hypertension Complete Blood Count Auto Diff Today I10 - Essential (primary) hypertension Comprehensive [place]. Panel Fast Today I10 - Essential (primary) hypertension UA CC w/rflx Micro + Cult Today I10 - Essential (primary) hypertension Medications: Changed From propranolol ER 120 mg PO DAILY 90 caps 1RF To propranolol ER 80 mg PO DAILY 90 caps 1RF
== END 2024-09-18 10:41 | disposition home or self-care (01) ==
PROVIDERS: PCP Nurse Practitioner Family; Visit Provider Nurse Practitioner Family
DX: I10 Essential (primary) hypertension (principal)

== ENCOUNTER → 2024-09-18 09:55 | Outpatient (BNVA) | payer OTHER, SELFPAY | PROVIDERS: PCP Nurse Practitioner Family; Visit Provider Nurse Practitioner Family | DX: I10 Essential (primary) hypertension (principal); Z79.899 Other long term (current) drug therapy | CPT/HCPCS: 96127 ==

== ENCOUNTER 2025-04-22 09:51 | Outpatient (REF) | payer OTHER, SELFPAY ==
[2025-04-22 12:58] LABS: MANUAL DIFF FLAG NO
[2025-04-22 13:06] LABS: Basophils Percent Auto 0.8 % (0-2); Eosinophils Absolute Auto 0.1 X10*3/uL (0.0-0.4); Eosinophils Percent Auto 2.8 % (0-4); Hematocrit 30.4 % (37.0-47.0); Hemoglobin 9.3 g/dl (12.0-16.0); Imm Gran Abs Auto 0.01 X10*3/uL (0.00-0.03); Imm Gran Pct Auto 0.2 % (0.0-0.4); Lymphocytes Absolute Auto 1.8 X10*3/uL (1.2-4.9); Lymphocytes Percent Auto 34.6 % (20-40); Mean Corpuscular HGB Conc 30.6 g/dl (31.0-35.0); Mean Corpuscular Hemoglobin 21.8 pg (27.0-33.0); Mean Corpuscular Volume 71.2 fL (80.0-98.0); Mean Platelet Volume 10.7 fL (9.4-12.3); Monocytes Absolute Auto 0.4 X10*3/uL (0.1-1.2); Monocytes Percent Auto 7.3 % (2-11); Neutrophils Absolute Auto 2.8 x10*3/uL (2.0-8.3); Neutrophils Percent Auto 54.3 % (45-73); Platelet Count 323 X10*3/uL (160-400); Red Blood Count 4.27 X10*6/uL (4.20-5.50); White Blood Count 5.1 X10*3/uL (4.8-10.8)
[2025-04-22 13:29] LABS: Alanine Aminotransferase 15 U/L (0-31); Albumin Level 4.5 g/dL (3.5-5.0); Alkaline Phosphatase 53 U/L (39-117); Anion Gap 12 (12-20); Aspartate Amino Transferase 24 U/L (5-31); Bilirubin Total 0.4 mg/dL (0.0-1.0); Blood Urea Nitrogen 8 mg/dL (9-16); Calcium 9.2 mg/dL (8.4-10.2); Carbon Dioxide 23 mmol/L (22-29); Chloride 106 mmol/L (96-108); Cholesterol 316 mg/dL (<200); Estimated Glomerular Filt Rate > 60; Glucose Fasting 89 mg/dL (60-99); HDL Cholesterol 65 mg/dL (>40); LDL Cholesterol Calculated 223 mg/dL (<100); Sodium 137 mmol/L (135-145); Total Protein 7.3 g/dL (6.5-8.0); Triglycerides 144 mg/dL (<150)
[2025-04-22 13:50] LABS: TSH reflex Free T4 1.18 uIU/mL (0.32-4.0)
== END 2025-04-22 09:52 | disposition home or self-care (01) ==
LOC: HO.HMGCLDS 09:51
PROVIDERS: PCP Nurse Practitioner Family; Visit Provider Nurse Practitioner Family
DX: I10 Essential (primary) hypertension (principal); Z79.899 Other long term (current) drug therapy; Z13.30 Encounter for screening examination for mental health and behavioral disorders, unspecified; E78.5 Hyperlipidemia, unspecified
CPT/HCPCS: 36415; 80053; 80061; 84443; 85025; 96127

== ENCOUNTER 2025-04-22 09:51 | Outpatient (AMB) | payer OTHER, SELFPAY ==
[2025-04-22 09:53] VITALS: BP 132/94; PULSE 84; RESP 15; TEMP 36.9; O2SAT 97; BMI 24.3
--- NOTE | 2025-04-22 09:53 | A.OFFPC_ITS ---
Vital Signs 04/22/25 09:53 Height 5 ft 5 in Weight 146 lb BMI 24.3 BP 132/94 H Blood Pressure Location Lt brachial Position Standing Respiration 15 Pulse 84 Pulse Source Pulse Oximeter Temp 98.5 F Temp Source Oral Pulse Oximetry (%) 97 Oxygen Delivery Method Room Air Intake Visit Reasons: 6 months follow up Intake Note: Pt is here today for her 6mo. f/u Allergies rosuvastatin Adverse Reaction (Intermediate, Uncoded 04/22/25 10:25) Gastrointestinal Upset Medication List - Last Reconciled 04/22/25 by JOSÉ MANUEL Polk-IRA acetaminophen ER (Tylenol Arthritis Pain) 1,300 mg PO Q12H cyclobenzaprine 10 mg PO BID PRN ibuprofen 800 mg PO TID melatonin mg PO .1-2 cap naproxen sodium (Aleve) 220 mg PO Q8H propranolol ER 80 mg PO DAILY Tobacco use date assessed: 04/22/25 Dental Screening Dental Screen Date: 04/22/25 Did you have a dental visit in the last 12 months?: Yes Did you have a dental problem in the last 6 months where you did not have access to dental care?: No Was dental information given to patient?: Patient has dentist HPI 6 months follow up HPI Details Chief Complaint The patient presents with hypertension and associated symptoms including chest tenderness, dyspnea, headache, and blurred vision. History of Present Illness The patient is a 44-year-old female presenting with hypertension and associated symptoms. She reports tenderness in the chest, dyspnea, headache, and blurred vision, with her blood pressure noted to be elevated, particularly the diastolic pressure. The patient also experiences severe lower back pain, which has been a persistent issue. The patient is currently taking propranolol, with her dose recently reduced from 120 mg to 80 mg. There is a consideration to increase the dosage again depending on her home blood pressure readings. pt will get her labs drawn today Social History Health Maintenance Review of Systems - Cardiovascular: Reports chest tenderne ss, elevated blood pressure. - Respiratory: Reports dyspnea. - Neurological: Reports headache, blurre d vision. Physical Exam General: Cooperative, healthy appearing, comfortable, no acute distress and well developed Orientation: Patient oriented x3 Limitations: No limitations Head: Normal to inspection Ears: Hearing grossly normal bilaterally Nose: Normal external nose present Face and sinus: Normal facial exam Eyes: Appearance normal, both eyes and all related structures Neck: Normal visual inspection and Yes full ROM Respiratory: Normal respiratory effort and able to speak in complete sentences. Clear to auscultation bilaterally Cardiovascular: Regular rate and rhythm. Normal S1 and S2 GI: Normal to inspection. Soft to palpation and nontender Skin: No rashes or lesions noted Neuro: Patient oriented x3 Extremities: Normal to inspection Results Plan The patient is advised to monitor her blood pressure at home and report the values via the patient portal. Depending on these readings, adjustments to her propranolol dosage may be considered to better manage her hypertension. Discussion Notes I discussed with the patient the importance of monitoring her blood pressure at home to assess the effectiveness of her current medication regimen. We talked about the potential need to adjust her propranolol dosage based on these readings to ensure optimal blood pressure control. Patient Instructions - Monitor your blood pressure at home re keisharly. - Report your blood pressure readings th rough the patient portal. - Follow up with any changes in symptoms or if your blood pressure remains elevated. [facility] Medical History Lumbar pars defect Family history of uterine cancer Family history of ovarian cancer Horseshoe kidney Gestational diabetes Nerve root compression Cervical disc disease DDD (degenerative disc disease), lumbar Surgical History No pertinent past surgical history Family History Father Kidney stones Mother DDD (degenerative disc disease) Substance use disorder Maternal Grandmother Ovarian cancer Paternal Grandmother Breast cancer Leukemia Lung cancer Social History Housing: House Alcohol intake: current Alcohol intake frequency: holidays/special occasions only Patient Tobacco Use Status: Never used Tobacco e-Cigarette/Vaping Use: Never Used Second Hand Smoke Exposure: No Current occupational status: disabled Cognitive needs: No Hearing needs: No Vision needs: No Questionnaire PHQ-9 Over the last 2 weeks, how often have you been bothered by any of the following problems? 1. Little interest or pleasure in doing things: not at all 2. Feeling down, depressed, or hopeless: not at all 3. Trouble falling or staying asleep, or sleeping too much: not at all 4. Feeling tired or having little energy: not at all 5. Poor appetite or overeating: not at all 6. Feeling bad about yourself - or that you are a failure or have let yourself or your family down: not at all 7. Trouble concentrating on things, such as reading the newspaper or watching television: not at all 8. Moving or speaking so slowly that other people could have noticed. Or the opposite - being so fidgety or restless that you have been moving around a lot more than usual: not at all 9. Thoughts that you would be better off or of hurting yourself in some way: not at all Total score: 0 Depression Screening Interpretation: Negative Depression Screening Done: Yes Source: Developed by Drs. Duc De La Cruz, Leigh Triana, Moy Roberts and colleagues, with an educational javier from [employer]. Thrive Questionnaire Date Thrive assessed: 04/19/25 I am a: Patient What is your living situation today?: I have a steady place to live Within the past 12 months, did the food you bought not last and you didn't have the money to get more?: Never true Within the past 12 months, did you worry whether your food would run out before you got money to buy more?: Never true Do you have trouble paying for medicines?: No Do you have trouble getting transportation to medical appointments?: No Do you have trouble paying your heating and electricity bill?: No Do you have trouble taking care of your child, family member or friend?: No Do you have trouble with day-to-day activities such as bathing, preparing meals, shopping, managing finances, etc.?: No Are you currently unemployed and looking for a job?: No Are you interested in more education?: No Please select the resources that you would like help with: None Currently or been in a relationship where the following occur: No concerns reported THRIVE Score: 0 AUDIT C Alcohol Use Questionnaire (AUDIT-C) 1. How often do you have a drink containing alcohol?: Never 3. How often do you have six or more drinks on one occasion?: Never Total Score: 0 KRISTINA-7 AMB Questionnaire KRISTINA-7 Date KRISTINA - 7 assessed: 09/18/24 Feeling nervous, anxious, or on edge: 0 = Not at all Not being able to stop or control worryin = Not at all Worrying too much about different things: 0 = Not at all Trouble relaxin = Not at all Being so restless that it is hard to sit still: 0 = Not at all Becoming easily annoyed or irritable: 0 = Not at all Feeling afraid as if something awful might happen: 0 = Not at all Total KRISTINA-7 score (0-4 normal; 5-9 mild; 10-14 moderate; 15-21 severe): 0 Source: Developed by Drs. Duc De La Cruz, Leigh Triana, Moy Roberts and colleagues, with an educational javier from [employer]. Physical exam (Primary Care) Vital Signs: Last Vital Signs Temp 98.5 F 04/22/25 09:53 Pulse 84 04/22/25 09:53 Resp 15 04/22/25 09:53 BP 132/94 H 04/22/25 09:53 Pulse Ox 97 04/22/25 09:53 Oxygen Delivery Method Room Air 04/22/25 09:53 BMI result Body Mass Index 24.3 Tobacco/Smoking Status: Tobacco use Status Tobacco use date assessed 04/22/25 04/22/25 09:54 Patient Tobacco Use Status Never used Tobacco 04/22/25 09:54 e-Cigarette/Vaping Use Never Used 04/22/25 09:54 PHQ-9: PHQ-9 Score PHQ-9: Total score 0 04/22/25 09:54 Depression Screening Interpretation: Negative Thrive Assessment: Date of Thrive Assessment Date Thrive assessed 04/19/25 04/22/25 09:54 Currently or been in a relationship where the following occur: No concerns reported Coding Level of Care Code Est Pt Level 3 (50059) Diagnoses HTN (hypertension) I10 Assessment & Plan Assessment & Plan (1) HTN (hypertension): Code(s): I10 - Essential (primary) hypertension Category: Medical Plan .
== END 2025-04-22 10:28 | disposition home or self-care (01) ==
LOC: HO.HMCC 09:52
PROVIDERS: PCP Nurse Practitioner Family; Visit Provider Nurse Practitioner Family
DX: I10 Essential (primary) hypertension (principal)

== ENCOUNTER 2025-05-02 10:31 | Outpatient (REF) | payer OTHER, SELFPAY ==
[2025-05-02 14:47] LABS: Appearance Urine Clear; Glucose Urine UA Negative (Negative); PH 5.5 (5.0-9.0); Specific Gravity - Urine 1.015 (1.005-1.025)
[2025-05-02 14:58] LABS: Reticulocytes Absolute 0.047 X10*6/uL (0.026-0.095)
[2025-05-02 15:55] LABS: Folate 15.2 ng/mL (> or = 4.0); Vitamin B12 1372 pg/mL (200-900)
[2025-05-02 16:15] LABS: Alanine Aminotransferase 11 U/L (0-31); Albumin Level 4.6 g/dL (3.5-5.0); Alkaline Phosphatase 53 U/L (39-117); Anion Gap 15 (12-20); Aspartate Amino Transferase 22 U/L (5-31); Blood Urea Nitrogen 10 mg/dL (9-16); Calcium 9.3 mg/dL (8.4-10.2); Carbon Dioxide 20 mmol/L (22-29); Chloride 105 mmol/L (96-108); Cholesterol 308 mg/dL (<200); Estimated Glomerular Filt Rate > 60; Ferritin 5 ng/mL (10-250); HDL Cholesterol 65 mg/dL (>40); Iron 31 mcg/dL (30-160); Percent Iron Saturation 7 % (15-50); Potassium 4.5 mmol/L (3.3-5.1); Sodium 135 mmol/L (135-145); Total Iron Binding Capacity 447 mcg/dL (228-428); Total Protein 7.4 g/dL (6.5-8.0); Triglycerides 135 mg/dL (<150); Unsaturated Iron Binding 416 ug/dL
[2025-05-06 14:34] LABS: Hematocrit 32.9 % (35.0-45.0); Hemoglobin 9.8 g/dL (11.7-15.5); MCH 22.4 pg (27.0-33.0); MCV 75.1 fL (80.0-100.0); RBC 4.38 Million/uL (3.80-5.10); RDW 17.0 % (11.0-15.0)
== END 2025-05-02 10:32 | disposition home or self-care (01) ==
LOC: HO.WFDLDS 10:31
PROVIDERS: Visit Provider Nurse Practitioner Family
DX: I10 Essential (primary) hypertension (principal); E78.5 Hyperlipidemia, unspecified; D64.9 Anemia, unspecified
CPT/HCPCS: 36415; 80053; 80061; 81003; 82607; 82728; 82746; 83020; 83540; 83615; 85014; 85018; 85041; 85045

== ENCOUNTER 2025-10-14 15:17 | Outpatient (AMB) | payer OTHER, SELFPAY ==
[2025-10-14 15:53] VITALS: BP 132/74; PULSE 86; TEMP 36.8; O2SAT 99; BMI 23.8
--- NOTE | 2025-10-14 15:53 | MHC.OFFWIV ---
Intake Vital Signs 10/14/25 15:53 Height 5 ft 5 in Weight 143 lb BMI 23.8 BP 132/74 Blood Pressure Location Rt brachial Position Sitting Pulse 86 Pulse Source Pulse Oximeter Temp 98.2 F Temp Source Oral Pulse Oximetry (%) 99 Oxygen Delivery Method Room Air Intake Visit Reasons: EP Possible mass in rectal area Intake Note: pt presents with mass inside anus that becomes painful with more palpitations, notes back and forth between constipation, normal/loose BM. states she found this mass a week ago by self examination. Patient Tobacco Use Status: Never used Tobacco Allergies rosuvastatin Allergy (Severe, Verified 10/14/25 15:59) GI upset, acid reflux, joint aches Do you need a note to return to daycare/school/sports/work: No HPI HPI Comments History of Present Illness Details 45-year-old female presents to the walk-in clinic with complaints of rectal pressure and a sensation of a bulging mass. Patient reports she performed a self rectal exam and felt a ?mass? in the inner rectal region. She is unsure if this represents a hemorrhoid. She has a history of chronic constipation related to iron supplementation for anemia. Reports having a normal bowel movement this morning. Denies rectal bleeding, rectal itching, abdominal pain, nausea, vomiting, diarrhea, melena, or hematochezia. She has a known history of external hemorrhoids related to childbirth. Denies personal or family history of colon cancer. [facility] Medical History (Updated 10/14/25 @ 16:43 by Bettie Limon NP) Rectal pressure Lumbar pars defect Family history of uterine cancer Family history of ovarian cancer Horseshoe kidney Gestational diabetes Nerve root compression Cervical disc disease DDD (degenerative disc disease), lumbar Surgical History No pertinent past surgical history Family History Father Kidney stones Mother DDD (degenerative disc disease) Substance use disorder Maternal Grandmother Ovarian cancer Paternal Grandmother Breast cancer Leukemia Lung cancer Social History Housing: House Alcohol intake: current Alcohol intake frequency: holidays/special occasions only Patient Tobacco Use Status: Never used Tobacco e-Cigarette/Vaping Use: Never Used Second Hand Smoke Exposure: No Current occupational status: disabled Cognitive needs: No Hearing needs: No Vision needs: No Review of Systems Const All systems reviewed & are unremarkable except as noted in HPI and below Physical Exam Vital Signs: Last Vital Signs Temp 98.2 F 10/14/25 15:53 Pulse 86 10/14/25 15:53 BP 132/74 10/14/25 15:53 Pulse Ox 99 10/14/25 15:53 Oxygen Delivery Method Room Air 10/14/25 15:53 BMI result Body Mass Index 23.8 Const General: no acute distress Nutritional Appearance: well nourished Orientation/consciousness: patient oriented x3 GI Other: Rectal Exam: External: External hemorrhoids present, non-thrombosed Internal: Anal sphincter tone intact. Palpable firm stool within the rectal vault consistent with fecal retention. Mild rectal fullness appreciated. No palpable hard masses. No gross blood noted on exam or glove. Inspection: Yes normal to inspection Palpation (GI): Soft to palpation, not firm, nontender, no guarding, not rigid and No hepatosplenomegaly present Auscultation: normal bowel sounds Neuro General: patient oriented x3 Assessment & Plan Assessment & Plan (1) Rectal pressure: Code(s): R19.8 - Other specified symptoms and signs involving the digestive system and abdomen Plan: Recommended stool softener (e.g., docusate sodium) while on iron supplementation. Recommended Bowel cleanse for the next few days to see if this will resolve the issue. Recommended osmotic laxative (polyethylene glycol/Miralax) daily as needed to promote regular bowel movements Increase dietary fiber intake Encouraged adequate oral hydration Consider fiber supplement (e.g., psyllium) Avoid straining during bowel movements. Follow up with PCP or GI if symptoms persist or worsen. She has a scheduled appointment with PCP on 10/29 Colonoscopy referral if new symptoms develop (rectal bleeding, change in bowel habits, unexplained weight loss) Coding Level of Care Code Est Pt Level 4 (25464) Diagnoses Rectal pressure R19.8 Time Spent (min) 20
--- OUTSIDE RECORDS SUMMARY | 2025-10-14 21:47 | XMS_ITS | Clinical Summary ---
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 Active melatonin 10 mg Tab Take 5 mg by mouth nightly at bedtime. Active diphenhydrAMINE (BENADRYL ALLERGY) 25 mg tablet Take 25 mg by mouth nightly at bedtime as needed for sleep. Active VITAMIN PLUS LOW IRON 27 mg iron- 1 mg Tab tablet 08/06/2020 Active acetaminophen (TYLENOL) 325 mg tablet Take 2 tablets (650 mg total) by mouth every 6 (six) hours as needed for mild pain. 0 10/11/2020 Active ibuprofen (ADVIL,MOTRIN) 200 MG tablet Take 3 tablets (600 mg total) by mouth every 6 (six) hours as needed. 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 Was concerned she might be having loss of fluid over the past week intermittently. No itching or irritation. Mallory it was watery at times and more obvious after rest. Discharge appears consistent with yeast. Patient denies any symptoms of vaginitis. Will hold on any treatment at this time. Mother positive for group B Streptococcus colonization 09/13/2020 11/26/2020 Overview (10/09/2020): Antibiotics during labor. PCN load and maintenance ordered on admit Diet controlled gestational diabetes mellitus (GDM) in third trimester 07/22/2020 11/26/2020 Overview (07/25/2020): 143 3h with 2 abnormal values Assessment & Plan (09/29/2020 12:24 PM EST): Being followed at [facility]. Still on diet and trying to get exercise. Insulin was being considered at one point but blood sugars have improved. Assessment & Plan (09/18/2020 3:53 PM EST): Reports past 5 days all numbers at goal, with fastings in 80s Assessment & Plan (09/11/2020 9:14 AM EST): Has been followed by [facility]. Last appointment was on 09/09 and per the note, consideration was being given to starting insulin but they wanted to see her blood sugars over the next week. As her FBG have been elevated and they may need to start insulin, will start weekly testing next week and consider induction between 39- 40 weeks. Assessment & Plan (08/25/2020 12:02 PM EDT): Normal growth US today. 70%ile. Fetus active with normal fluid. Presently most elevations are with FBG. Has had nutritional guidance with [facility] last week. Finds evening snack usually seems to affect FBG. Discussed with patient the possibility that she may be given bedtime insulin dosing should these morning sugars remain elevated. Patient getting regular exercise. Rh negative, antepartum 03/25/2020/04/2021 Overview (08/25/2020): Reports is also Rh neg Accepts Rhogam at 28 weeks- 07/21/20 given Multigravida of advanced mat ernal age in third trimester 02/21/2020 11/26/2020 Overview (10/09/2020): OB-CMI score: 1 [02/21/2020] Rh Bneg, ab neg GC/Chlam neg Tdap 08/25/2020 Flu 08/25/2020 Hgb 12.3 GTT 143 GBS + PPBC IUD, maybe Kyleena at 6 weeks pp screening - plans counsyl and L2 (normal) 10/09/20202037 5/100/-3 with bulging membranes on presentation Assessment & Plan (09/29/2020 12:24 PM EST): Patient notes good movement. Apart from the vaginal discharge and question loss of fluid patient has no concerns today. Denies any vaginal bleeding. Denies any uterine contractions. Assessment & Plan (09/11/2020 9:09 AM EST): She notes good movement. She denies any vaginal bleeding, LOF or regular contractions. GBS done today. Assessment & Plan (08/25/2020 12:02 PM EDT): Feels well. Notes good movement. Did have a fall while sitting on a fence and felt she strained her back. Has history of multiple low back problems-DJD, herniated disks. Patient has her past MRI report from [facility] with her from October 2019. Will be scanned on the chart. Patient's questions regarding epidural anesthesia discussed. Patient states neurologist advised her it was fine to proceed with a vaginal delivery. Immunizations Immunization Administration Dates Next Due Hepatitis B, unspecified formulation 04/30/2013, 01/29/2013,11/23/2012 Influenza Quadrivalent Preservative Free IM 08/01 Influenza, Unspecified Formulation 11/21/2012 MMR 01/29/2013,11/27/2012 Rho (D) Immune Globulin 07/21/2020 Tdap 08/25/2020,11/21/2012 Family History Medical History Relation Comments Diverticulitis Father Hyperlipidemia Father Hypertension Father Cancer Maternal Grandmother Lung cancer Maternal Grandmother Cancer Paternal Grandmother Ovarian cancer Paternal Grandmother Relation Status Comments Brother Alive Father Alive Maternal Grandmother Mother Alive Paternal Grandmother Sister Alive Social History Tobacco Use Types Packs/Day Years Used Date Smoking Tobacco: Former Cigarettes Q uit: 2014 Smokeless Tobacco: Never Alcohol Use Standard Drinks/Week Comments Not Currently 0 (1 standard drink = 0.6 oz pur e alcohol) Education Answer Date Recorded Are you interested in more education? Not on mg e 02/25/2023 Are you concerned about learning? Not on file 02/25/2023 No 02/25/2023 No 02/25/2023 Digital Access Answer Date Recorded No 03/28/2023 No 03/28/2023 No 03/28/2023 Reliable internet access at home? Not on file 03/28/2023 Device with a working camera? Not on file Comments No Sex and Gender Information Value Date Recorded Sex Assigned at Female 03/20/2020 4:16 PM EDT Legal Sex Female 10:46 AM EDT Gender Identity Female 03/20/2020 4:16 PM EDT Sexual Orientation Not on file Last Filed Vital Signs Vital Sign Reading Time Taken Comments Blood Pressure 126/81 10/11/2020 9:00 AM EST Pulse 81 10/11/2020 9:00 AM EST Temperature 36.5 C (97.7 F) 10/11/2020 9:00 AM EST Respiratory Rate 18 10/11/2020 9:00 AM EST Oxygen Saturation 97% 10/11/2020 12:00 AM EST Inhaled Oxygen Concentration - - Weight 81.6 kg (180 lb) 01/12/2021 12:41 PM EDT Height 165.1 cm (5' 5 ) 10/11/2020 12:00 AM EST Body Mass Index 29.95 10/11/2020 12:00 AM EST Plan of Treatment Health Maintenance Due Date Last Done Comments DEPRESSION SCREENING 1994 SMOKING Hx and SMOKELESS TOBACCO SCREENING 1995 MAMMOGRAM 2022 PAP SMEAR 03/21/2023 03/21/2020 INFLUENZA VACCINE (#1) 2025 , 11/21/2012 COVID-19 VACCINE (2024-2 6 season) 2025 03/18/2021, 02/25/2021 Adult Td,Tdap Booster 08/25/2030 08/25/2020 , 11/21/2012 HEPATITIS C SCREENING Completed 03/21/2020 , 03/21/2020 HIV ONE-TIME SCREENING (18-6 5 YEARS) Completed 03/21/2020 HEPATITIS A VACCINES Aged Out No long er eligible based on patient's age to complete this topic HIB VACCINES Aged Out No longer eligi ble based on patient's age to complete this topic MENINGOCOCCAL VACCINES (ACWY) Aged Out No longer eligible based on patient's age to complete this topic MENINGOCOCCAL VACCINES (B) Aged Out N o longer eligible based on patient's age to complete this topic PNEUMOCOCCAL VACCINES (0-49 years) Aged Out No longer eligible b ased on patient's age to complete this topic Medical Devices Not on file Procedures Procedure Name Priority Date/Time Associated Diagnosis Comments HEPATITIS C ANTIBODY, QUALITATIVE Routine 03/21/2020 10:50 AM EDT Routine screening for STI (sexually transmitted infection) PAP TEST Routine 03/21/2020 12:00 AM EDT from Last 3 Months or Most Recently Relevant to Health Maintenance Results * Hepatitis C antibody, qualitative (03/21/2020 10:50 AM EDT) HCV NON-REACTIV E NON-REACTI VE [facility] Blood 03/21/2020 10:5 0 AM EDT 03/21/2020 10:54 AM EDT Kiera Pate [facility] BLOOD BKR ORDERABLES Final Result [address] [address] * Pap Smear (03/21/2020 12:00 AM EDT) 03/21/2020 03/28/2020 11: 46 AM EDT Narrative SEE NARRATIVE - 04/02/2020 11:37 AM EDT [address] [address] [place] Supervisor: Karen Alcantar MD 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 PAP SMEAR (SUREPATH) CE: SPECIMEN ADEQUACY: Satisfactory for evaluation; transformation zone absent/insufficient. INTERPRETATION: NEGATIVE FOR INTRAEPITHELIAL LESION OR MALIGNANCY. Reactive changes. Fungal organisms morphologically consistent with Sindy species. Electronically Signed Out By: MD Salvatore Clancy CT([facility]) By his/her signature above, the pathologist listed as making the Final Diagnosis certifies that he/she has personally reviewed this case and confirmed or corrected the diagnosis. The Pap test is a screening test primarily for squamous cancers and precursors and has associated false-negative and false-positive results. New technologies such as liquid-based preparations may decrease but will not eliminate all false-negative results. Regular sampling and follow-up of unexplained clinical signs and symptoms are recommended to minimize false negative results. PROCEDURES/ADDENDA HPV Testing (Requested) Ordered Date: 03/28/2020 A. PAP SMEAR (SUREPATH) CE: Human Papilloma Virus Test Negative for high-risk human papillomavirus types 16, 18, 45 and the Other high risk probe set (Includes 31, 33, 35, 39, 51, 52, 56, 58, 59, 66, 68) by [employer] Onclarity HR-HPV analysis. Clinical correlation is advised. This HPV test was performed at [facility], [address] [place] [address]. This test has been FDA approved for SurePath cervical cytology specimens. The accuracy and precision of this test for all other specimen sources has been verified in the Cytopathology Laboratory of the [facility] and has not been cleared or approved by the U.S. Food and Drug Administration. Clinical correlation is advised. CLINICAL HISTORY Date of Last Menstrual Period: Not Provided Menstrual History: Other Clinical Conditions: Screening Pap SPECIMEN SOURCE A: PAP SMEAR (SUREPATH) CE Patient Name: BEVERLY BURGESS : 1980 (Age: 39) Sex: F Institution: [facility] Location: [facility] Date of Collection: 03/21/2020 Date of Reported: 04/01/2020 11:07 Results to: Jodi Cosme MD Jodi Cosme MD CYTOLOGY ORDERABLES Edited Result - Final SEE NARRATIVE from Last 3 Months or Most Recently Relevant to Health Maintenance Insurance [place] [address] [place] [id number] [facility] [address] [facility] HMO Advance Directives For more information, please contact: [phone] (9AM - 5PM [facility], Tuesday-Tuesday) Documents on File Type Date Recorded 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 It is not the complete legal health record.[facility]
== END 2025-10-14 16:44 | disposition home or self-care (01) ==
PROVIDERS: PCP Nurse Practitioner Family; Visit Provider Nurse Practitioner Family
DX: R19.8 Other specified symptoms and signs involving the digestive system and abdomen (principal)

== ENCOUNTER 2025-10-29 14:12 | Outpatient (AMB) | payer OTHER, SELFPAY ==
[2025-10-29 14:40] VITALS: BP 128/88; PULSE 66; RESP 16; O2SAT 99; BMI 24.5
--- NOTE | 2025-10-29 14:40 | A.OFFPC_ITS ---
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 Cash Shortage Required: No Accompanied by: Self / Same As Patient Allergies rosuvastatin Allergy (Severe, Verified 10/29/25 14:50) GI upset, acid reflux, joint aches Medication List - Last Reconciled 10/29/25 by JOSÉ MANUEL Polk-BC acetaminophen ER (Tylenol Arthritis Pain) 1,300 mg PO Q12H cyclobenzaprine 10 mg PO BID PRN ibuprofen 800 mg PO TID melatonin mg PO .1-2 cap naproxen sodium (Aleve) 220 mg PO Q8H propranolol ER 80 mg PO DAILY Tobacco use date assessed: 10/29/25 Dental Screening Dental Screen Date: 10/29/25 Did you have a dental visit in the last 12 months?: Yes Did you have a dental problem in the last 6 months where you did not have access to dental care?: No Was dental information given to patient?: Patient has dentist HPI Annual PE HPI Details History of Present Illness The patient is a 45 year old female presenting for a physical exam. She reported a sensation of a rectal mass and was previously seen at a walk-in clinic where an examination by a female provider revealed palpable stool in the rectal vault, consistent with fecal retention. She still experiences rectal pressure after defecation and questions if there is a mass, although she denies current constipation, rectal bleeding, or pain with defecation. She has never had a colonoscopy. The patient was previously on iron supplements, which she acknowledged can cause constipation. She also reports experiencing hair loss. Regarding preventative care, she declines Pap smears, mammograms, and all vaccinations. Health Maintenance The patient presented for a physical exam but declined all recommended preventative care, including a Pap smear, mammogram, and all vaccinations. These declinations have been noted. 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 - She reports being very active with her son. Review of Systems - Constitutional: Reports hair loss and appearing tired. - Cardiovascular: Denies chest pain. - Respiratory: Denies shortness of breat h. - Gastrointestinal: Reports rectal press ure after defecation and sensation of a rectal mass . - Denies rectal bleeding, pain with defe cation, blood in stool, current constipation, or diarrhea. - Psychiatric: Denies suicidal or homici dominguez ideation and reports doing well. Physical Exam General: Cooperative, healthy appearing, comfortable, no acute distress and well developed, although appears a little tired today Orientation: Patient oriented x3 Limitations: No limitations Head: Normal to inspection Ears: Hearing grossly normal bilaterally Nose: Normal external nose present Face and sinus: Normal facial exam Eyes: Appearance normal, both eyes and all related structures Neck: Normal visual inspection and Yes full ROM Respiratory: Normal respiratory effort and able to speak in complete sentences. Clear to auscultation bilaterally Cardiovascular: Regular rate and rhythm. Normal S1 and S2 GI: Normal to inspection. Soft to palpation and nontender, but palpable stool noted in the rectal vault consistent with fecal retention : testicles without masses/lesions and no hernias appreciated Skin: No rashes or lesions noted Neuro: Patient oriented x3 Extremities: Normal to inspection Results Plan 1. Sensation Of Rectal Mass/Fecal Retent ion The patient presents with concern for a rectal mass, reporting rectal pressure after defecation. A prior examination at a walk-in clinic noted palpable stool in the rectal vault consistent with fecal retention. Although she denies current constipation, rectal bleeding, or pain, she requested a referral to a assistant fitness manager for further evaluation, which has been placed to a female provider as per her request. 2. Alopecia And Suspected Anemia The patient reports hair loss, and there is a clinical suspicion this may be related to anemia, given her history of taking iron supplements. Fasting labs have been highly encouraged to be completed in the near future to check iron levels and further investigate this possibility. 3. Encounter for general adult medical e xamination with abnormal findings Z00.01 Discussion Notes During our visit, I addressed the patient's concern regarding a rectal mass. I reviewed the findings from her recent walk-in visit, where palpable stool was found in the rectal vault, a condition consistent with fecal retention. We discussed that while she is not currently constipated, the sensation of pressure can persist. As she requested, I gladly placed a referral for her to see a female assistant fitness manager for further evaluation. We also discussed her reported hair loss, and I explained that it could be related to anemia. I highly encouraged her to have fasting labs drawn in the near future to investigate this. The patient declined all health maintenance screenings, including a Pap smear and mammogram, as well as all vaccinations, and I have noted her decisions. Patient Instructions - A referral has been made for you to se jose armas gut specialist (assistant fitness manager) to look into your concern about a rectal mass. - It is highly recommended that you go f or a fasting blood test soon to check your iron levels and look into the cause of your hair loss. - Remember to drink plenty of water and eat foods high in fiber, such as fruits and vegetables, to help with your bowel movements. - Today, you decided not to get a Pap sm ear, mammogram, or any vaccines. [facility] Medical History Rectal pressure Lumbar pars defect Family history of uterine cancer Family history of ovarian cancer [place] kidney Gestational diabetes Nerve root compression Cervical disc disease DDD (degenerative disc disease), lumbar Surgical History No pertinent past surgical history Family History Father Kidney stones Mother DDD (degenerative disc disease) Substance use disorder Maternal Grandmother Ovarian cancer Paternal Grandmother Breast cancer Leukemia Lung cancer Social History Housing: House Alcohol intake: current Alcohol intake frequency: holidays/special occasions only Patient Tobacco Use Status: Never used Tobacco e-Cigarette/Vaping Use: Never Used Second Hand Smoke Exposure: No Current occupational status: disabled Cognitive needs: No Hearing needs: No Vision needs: No Questionnaire PHQ-9 Over the last 2 weeks, how often have you been bothered by any of the following problems? 1. Little interest or pleasure in doing things: not at all 2. Feeling down, depressed, or hopeless: not at all 3. Trouble falling or staying asleep, or sleeping too much: not at all 4. Feeling tired or having little energy: not at all 5. Poor appetite or overeating: not at all 6. Feeling bad about yourself - or that you are a failure or have let yourself or your family down: not at all 7. Trouble concentrating on things, such as reading the newspaper or watching television: not at all 8. Moving or speaking so slowly that other people could have noticed. Or the opposite - being so fidgety or restless that you have been moving around a lot more than usual: not at all 9. Thoughts that you would be better off or of hurting yourself in some way: not at all Total score: 0 Depression Screening Interpretation: Negative Depression Screening Done: Yes 94002 - PHQ-9 Billing: Patient declined-do not bill Source: Developed by Drs. Duc De La Cruz, Leigh Triana, Moy Roberts and colleagues, with an educational javier from [employer]. Thrive Questionnaire Date Thrive assessed: 04/19/25 What is your living situation today?: I have a steady place to live Within the past 12 months, did the food you bought not last and you didn't have the money to get more?: Never true Within the past 12 months, did you worry whether your food would run out before you got money to buy more?: Never true Do you have trouble paying for medicines?: No Do you have trouble getting transportation to medical appointments?: No Do you have trouble paying your heating and electricity bill?: No Do you have trouble taking care of your child, family member or friend?: No Do you have trouble with day-to-day activities such as bathing, preparing meals, shopping, managing finances, etc.?: No Are you currently unemployed and looking for a job?: No Are you interested in more education?: No Currently or been in a relationship where the following occur: No concerns reported THRIVE Score: 0 KRISTINA-7 AMB Questionnaire KRISTINA-7 Date KRISTINA - 7 assessed: 10/29/25 Feeling nervous, anxious, or on edge: 0 = Not at all Not being able to stop or control worryin = Not at all Worrying too much about different things: 0 = Not at all Trouble relaxin = Not at all Being so restless that it is hard to sit still: 0 = Not at all Becoming easily annoyed or irritable: 0 = Not at all Feeling afraid as if something awful might happen: 0 = Not at all Total KRISTINA-7 score (0-4 normal; 5-9 mild; 10-14 moderate; 15-21 severe): 0 Source: Developed by Drs. Duc De La Cruz, Leigh Triana, Moy Roberts and colleagues, with an educational javier from [employer]. KRISTINA-7 Assessment Billing KRISTINA-7 Assessment Tool: KRISTINA-7 Assessment 94392 Physical exam (Primary Care) Vital Signs: Last Vital Signs Pulse 66 10/29/25 14:40 Resp 16 10/29/25 14:40 BP 128/88 10/29/25 14:40 Pulse Ox 99 10/29/25 14:40 Oxygen Delivery Method Room Air 10/29/25 14:40 BMI result Body Mass Index 24.5 Tobacco/Smoking Status: Tobacco use Status Tobacco use date assessed 10/29/25 10/29/25 14:45 Patient Tobacco Use Status Never used Tobacco 10/29/25 14:45 e-Cigarette/Vaping Use Never Used 10/29/25 14:45 PHQ-9: PHQ-9 Score PHQ-9: Total score 0 10/29/25 14:45 Depression Screening Interpretation: Negative Thrive Assessment: Date of Thrive Assessment Date Thrive assessed 04/19/25 10/29/25 14:45 Currently or been in a relationship where the following occur: No concerns reported Coding Level of Care Code Est Pt Level 3 (22208) Est Pt Prev Care 40-64y(07791) Diagnoses Encounter for routine adult physical exam with abnormal findings Z00. Anemia D64.9 Rectal pressure R19.8 Additional Codes KRISTINA-7 Assessment Billing - KRISTINA-7 Assessment Tool: KRISTINA-7 Assessment 29394 ([id number]) Assessment & Plan Assessment & Plan (1) Encounter for routine adult physical exam with abnormal findings: Code(s): Z00. - Encounter for general adult medical examination with abnormal findings Category: Medical (2) Anemia: Code(s): D64.9 - Anemia, unspecified Category: Medical (3) Rectal pressure: Code(s): R19.8 - Other specified symptoms and signs involving the digestive system and abdomen Category: Medical Plan . Orders: Orders UA CC w/rflx Micro + Cult Today Z00.01 - Encounter for general adult medical examination with abnormal findings IRON PROFILE Today D64.9 - Anemia, unspecified Ferritin Today D64.9 - Anemia, unspecified Complete Blood Count Auto Diff Today Z00.01 - Encounter for general adult medical examination with abnormal findings Comprehensive [place]. Panel Fast Today Z00.01 - Encounter for general adult medical examination with abnormal findings TSH reflex Free T4 Today Z00.01 - Encounter for general adult medical examination with abnormal findings Lipid Panel Today Z00.01 - Encounter for general adult medical examination with abnormal findings Vitamin B12 and Folate Today D64.9 - Anemia, unspecified Reticulocyte Count Today D64.9 - Anemia, unspecified Lactate Dehydrogenase Today D64.9 - Anemia, unspecified Referrals Gastroenterology Referral R19.8 - Other specified symptoms and signs involving the digestive system and abdomen
--- OUTSIDE RECORDS SUMMARY | 2025-10-29 17:58 | XMS_ITS | Clinical Summary ---
Author Organization [facility] Address [address] [place] [phone] Phone Care Team Providers Care [employer] Co[employer] Supervisor Name Role Phone Marily Cornejo MD Primary [...] past week intermittently. No itching or irritation. [place] it was watery at times and more [...] 12:24 PM EST): Being followed at [facility]. Still on diet and trying to get exercise. Insulin was being considered at one point but blood sugars have improved. Assessment & Plan (09/18/2020 3:53 PM EST): Reports past 5 days all numbers at goal, with fastings in 80s Assessment & Plan (09/11/2020 9:14 AM EST): Has been followed by [facility]. Last appointment was on 09/09 and per [...] FBG. Has had nutritional guidance with [facility] last week. Finds evening snack usually seems [...] Patient has her past MRI report from [facility] with her from October 2019. Will [...] AM EDT) HCV NON-REACTIV E NON-REACTI VE [facility] Blood 03/21/2020 10:5 0 AM EDT 03/21/2020 10:54 AM EDT Kiera Pate [facility] BLOOD BKR ORDERABLES Final Result [address] [address] * Pap Smear (03/21/2020 12:00 AM EDT) 03/21/2020 03/28/2020 11: 46 AM EDT Narrative SEE NARRATIVE - 04/02/2020 11:37 AM EDT [address] [address] Pecan Sheller: Karen Alcantar MD [employer]ISING [employer]ERKS SUPERVISOR Cytology Report FINAL DIAGNOSIS A. PAP SMEAR (SUREPATH) CE: SPECIMEN ADEQUACY: Satisfactory for evaluation; transformation zone absent/insufficient. INTERPRETATION: NEGATIVE FOR INTRAEPITHELIAL LESION OR MALIGNANCY. Reactive changes. Fungal organisms morphologically consistent with Sindy species. Electronically Signed Out By: MD Salvatore Clancy CT([facility]) By his/her signature above, the pathologist listed [...] 52, 56, 58, 59, 66, 68) by [facility] HR-HPV analysis. Clinical correlation is advised. This HPV test was performed at [facility], [address] [place] [address]. This test has been FDA approved for [facility] cervical cytology specimens. The accuracy and precision of this test for all other specimen sources has been verified in the Cytopathology Laboratory of the [facility] and has not been cleared or approved by the U.S. Food and Drug Administration. Clinical correlation is advised. CLINICAL HISTORY Date of Last Menstrual Period: Not Provided Menstrual History: Other Clinical Conditions: Screening Pap SPECIMEN SOURCE A: PAP SMEAR (SUREPATH) CE Patient Name: BEVERLY BURGESS : 1980 (Age: 39) Sex: F Institution: [facility] Location: [facility] Date of Collection: 03/21/2020 Date of Reported: 04/01/2020 11:07 Results to: Jodi Cosme MD Jodi Cosme MD CYTOLOGY ORDERABLES Edited Result - Final SEE NARRATIVE from Last 3 Months or Most Recently Relevant to Health Maintenance Insurance [place] [address] [place] [address] [facility] [place] [address] [address] [facility] H[facility] Address: [address] [address] Advance Directives For more information, please contact: [phone] (9AM - 5PM [facility], Tuesday-Tuesday) Documents on File Type Date Recorded Patient Wrapper Rewinder Expl anation Healthcare Proxy 10/15/2020 1:04 PM Care Teams [employer] Paper Co[employer] Supervisor Relationship Specialty Start Date End Date Marily Cornejo MD [facility] [place] [address] PCP - General Internal Medicine 02/07/20 Additional Source Comments The information contained in this document represents components of the legal health record. It is not the complete legal health record.[facility]
== END 2025-10-29 15:57 | disposition home or self-care (01) ==
LOC: HO.HMCC 14:13
PROVIDERS: PCP Nurse Practitioner Family; Visit Provider Nurse Practitioner Family
DX: Z00.01 Encounter for general adult medical examination with abnormal findings (principal); D64.9 Anemia, unspecified; R19.8 Other specified symptoms and signs involving the digestive system and abdomen

== ENCOUNTER → 2025-10-29 14:12 | Outpatient (BNVA) | payer OTHER, SELFPAY | PROVIDERS: PCP Nurse Practitioner Family; Visit Provider Nurse Practitioner Family | DX: Z13.31 Encounter for screening for depression (principal); Z13.39 Encounter for screening examination for other mental health and behavioral disorders | CPT/HCPCS: 96127 ==